=== PATIENT | male | born 1940 | race Caucasian/White ===

== ENCOUNTER 2018-03-20 14:13 | Inpatient (IN) | payer MEDICARE ==
[~2018-03-20] VITALS: Ht 182.9 cm; Wt 90.7 kg
[~2018-03-20 14:13] MED LIST: AMLODIPINE BESYL5 MG PO; BENICAR20 MG PO; HYDROCHLOROTHIA25 MG PO; NOVOLIN 70100 UNITS/ SQ
[2018-03-20] MEDS ORDERED: SODIUM CHLORIDE 0.9% 1000ML 1,000 ML IV STA (14:24)
[2018-03-20] MEDS ORDERED: ASPIRIN 81 MG CHEW TAB PO ONE (14:30)
[2018-03-20] MEDS ORDERED: NITROGLYCERIN 0.4 MG SUBL SL PRN (14:30)
[2018-03-20 16:06] LABS: BASOPHILS % 0.1 % (0.0-1.0); HEMATOCRIT 39.4 % (38.2-49.6); HEMOGLOBIN 13.8 g/dL (14.0-18.0); LYMPHOCYTES # (AUTO) 0.6 (1.0-3.2); MEAN CORPUSCULAR HEMOGLOBIN 33.4 pg (28-32); MEAN CORPUSCULAR VOLUME 95.4 fL (81-99); MONOCYTES # (AUTO) 0.9 (0.2-0.8); MONOCYTES % 7.2 % (4.4-11.3); NEUTROPHILS # (AUTO) 11.2 (2.1-6.9); NEUTROPHILS % 87.3 % (38.7-80.0); PLATELET COUNT 180 x10e3/uL (140-360); RED BLOOD COUNT 4.13 x10e6/uL (4.3-5.7); RED CELL DISTRIBUTION WIDTH 12.1 % (11.7-14.4)
[2018-03-20 16:20] LABS: INR 1.24; PROTHROMBIN TIME 14.7 seconds (11.9-14.5)
[2018-03-20 16:21] LABS: PARTIAL THROMBOPLASTIN TIME 34.9 seconds (23.8-35.5)
[2018-03-20 16:42] LABS: ALANINE AMINOTRANSFERASE 13 IU/L (0-55); ALBUMIN 3.9 g/dL (3.5-5.0); ALBUMIN/GLOBULIN RATIO 1.1 (0.8-2.0); ALKALINE PHOSPHATASE 70 IU/L (40-150); ANION GAP 16.9 mmol/L (8-16); BLOOD UREA NITROGEN 18 mg/dL (7-26); BUN/CREATININE RATIO 16 (6-25); CALCIUM 9.7 mg/dL (8.4-10.2); CARBON DIOXIDE 22 mmol/L (22-29); CHLORIDE 95 mmol/L (98-107); CREATINE KINASE 39 IU/L (30-200); CREATININE, SERUM 1.16 mg/dL (0.72-1.25); EST GLOMERULAR FILTRATION RATE > 60 ML/MIN (60-); GLUCOSE 264 mg/dL (74-118); POTASSIUM 3.9 mmol/L (3.5-5.1); SODIUM 130 mmol/L (136-145)
--- NOTE | 2018-03-20 16:52 | Diagnostic Imaging Report ---
EXAMINATION: CHEST SINGLE (NOT PORTABLE) 03/20/2018 2:24 PM COMPARISON: None INDICATION: Chest pain DISCUSSION: LINES: None. LUNGS: Dense left lower lobe and lingular opacity. Biapical pleural thickening. PLEURA: A small left pleural effusion may be present HEART AND MEDIASTINUM: The cardiomediastinal silhouette is unremarkable. BONES AND SOFT TISSUES: No acute osseous lesion. The soft tissues are normal. IMPRESSION: Dense left lower lobe and lingular opacity, suspicious for pneumonia. Recommend follow-up radiograph in 6-12 weeks to ensure resolution. Tip Mendoza MD Signed by: Dr. Tip Mendoza M.D. on 03/20/2018 4:49 PM
[2018-03-20] MEDS ORDERED: AZITHROMYCIN 500MG/NS 250 ML 250 ML IV STA (16:57)
[2018-03-20] MEDS ORDERED: CEFTRIAXONE SOD 1 GM VIAL IV ONE (17:00)
[2018-03-20] MEDS ORDERED: MORPHINE SULFATE 2 MG/ML SYR IV STA (17:36)
[2018-03-20] MEDS ORDERED: ONDANSETRON HCL INJ 2 MG/ML VIAL IV PRN (17:45)
[2018-03-20] MEDS ORDERED: DEXTROSE 50% SYRINGE 50 ML IV PRN (17:45)
[2018-03-20] MEDS: AZITHROMYCIN 500MG/SOD CHL 0.9% 250ML BAG IV SCH (17:55)
[2018-03-20] MEDS: CEFTRIAXONE SOD 1 GM VIAL IV SCH (17:55)
[2018-03-20] MEDS: IPRATROPIUM BROMIDE 0.02% 2.5 ML NEB NEB SCH ×3 (18:00→23:20)
[2018-03-20] MEDS ORDERED: MORPHINE SULFATE 2 MG/ML SYR IV PRN (18:15)
[2018-03-20] MEDS: SODIUM CHLORIDE 0.9% 1000ML 1,000 ML IV SCH (18:17)
[2018-03-20] MEDS: ALBUTEROL SULF 0.083% NEB SOLN 3 ML NEB NEB SCH ×2 (19:00→23:20)
[2018-03-20 19:42] VITALS: BP 155/74
[2018-03-20 19:43] VITALS: BP 155/74
[2018-03-20 19:46] VITALS: BP 155/74
[2018-03-20 20:00] VITALS: BP 155/74
[2018-03-20] MEDS: INSULIN REGULAR, HUMAN 100 UNIT/1 ML 3ML VIAL SQ SCH (20:30)
[2018-03-21] VITALS (7 sets, daily range): BP systolic 122–147; BP diastolic 64–72
[2018-03-21] MEDS ORDERED: ACETAMINOPHEN 325 MG TAB PO PRN (00:45)
[2018-03-21] MEDS: ALBUTEROL SULF 0.083% NEB SOLN 3 ML NEB NEB SCH ×5 (04:00→19:05)
[2018-03-21] MEDS: SODIUM CHLORIDE 0.9% 1000ML 1,000 ML IV SCH ×2 (05:12→15:20)
[2018-03-21 05:50] LABS: BASOPHILS % 0.2 % (0.0-1.0); HEMATOCRIT 33.9 % (38.2-49.6); HEMOGLOBIN 11.6 g/dL (14.0-18.0); MEAN CORPUSCULAR HEMOGLOBIN 33.3 pg (28-32); MEAN CORPUSCULAR HGB CONC 34.2 g/dL (31-35); MEAN CORPUSCULAR VOLUME 97.4 fL (81-99); MONOCYTES % 9.3 % (4.4-11.3); NEUTROPHILS # (AUTO) 8.3 (2.1-6.9); NEUTROPHILS % 80.1 % (38.7-80.0); PLATELET COUNT 133 x10e3/uL (140-360); RED BLOOD COUNT 3.48 x10e6/uL (4.3-5.7); RED CELL DISTRIBUTION WIDTH 12.2 % (11.7-14.4)
[2018-03-21 06:18] LABS: ANION GAP 12.6 mmol/L (8-16); BLOOD UREA NITROGEN 14 mg/dL (7-26); BUN/CREATININE RATIO 14 (6-25); CALCIUM 8.7 mg/dL (8.4-10.2); CARBON DIOXIDE 24 mmol/L (22-29); CHLORIDE 99 mmol/L (98-107); CREATININE, SERUM 0.97 mg/dL (0.72-1.25); EST GLOMERULAR FILTRATION RATE > 60 ML/MIN (60-); GLUCOSE 202 mg/dL (74-118); POTASSIUM 3.6 mmol/L (3.5-5.1); SODIUM 132 mmol/L (136-145)
[2018-03-21 06:37] LABS: CREATINE KINASE MB 0.2 ng/mL (0-5.0)
[2018-03-21] MEDS: IPRATROPIUM BROMIDE 0.02% 2.5 ML NEB NEB SCH ×3 (07:00→19:05)
[2018-03-21] MEDS: INSULIN REGULAR, HUMAN 100 UNIT/1 ML 3ML VIAL SQ SCH ×4 (07:30→21:40)
--- NOTE | 2018-03-21 07:46 | Diagnostic Imaging Report ---
CHEST SINGLE (PORTABLE), 03/21/2018 5:00 AM Technique: CHEST SINGLE (PORTABLE) Comparison: 03/20/2018 Clinical history: Pneumonia Findings: See Impression Impression: 1. Stable cardiomediastinal silhouette. 2. Increased left lower lobe consolidation in keeping with reported pneumonia. Probable underlying left pleural effusion. 3. Increased right basilar atelectasis or aspiration/pneumonia. Signed by: Dr Salma Tellez MD on 03/21/2018 6:36 AM
[2018-03-21 13:39] LABS: CHOL/HDL RATIO 2.4 (3.9-4.7)
[2018-03-21 14:02] LABS: CREATINE KINASE MB 0.3 ng/mL (0-5.0)
--- NOTE | 2018-03-21 16:18 | History and Physical ---
HISTORY OF PRESENT ILLNESS: He is a 78-year-old male with past medical history positive for hypertension, prostate surgery, history of diabetes mellitus type 2. He came here with left-sided chest pain with no radiation. He was found to have left lower lobe pneumonia and right lower lobe pneumonia. Cardiac enzymes x2 are completely negative right now. Findings are atypical. REVIEW OF SYSTEMS CARDIOVASCULAR: He had kind of an atypical chest pain on the left side where the location of the pneumonia is. No shortness of breath. RESPIRATORY: No shortness of breath. No cough. GASTROINTESTINAL: No nausea, no vomiting, no diarrhea. GENITOURINARY: No frequency, no dysuria. ALLERGIES: ALLERGIC TO SULFA DRUGS. PAST MEDICAL HISTORY: Hypertension, diabetes. SOCIAL HISTORY: He does not smoke. He does not drink. PHYSICAL EXAMINATION VITAL SIGNS: We have temperature 97.1, heart rate 66 per minute, respiratory rate 20 per minute, blood pressure 122/72, oxygen saturation 98%. HEART: Regular rhythm. Normal S1 and S2 sounds. LUNGS: Clear bilaterally. ABDOMEN: Soft. EXTREMITIES: No evidence of cyanosis, edema or trauma. IMAGING: Bilateral pneumonia. We have a chest x-ray which showed stable cardiomediastinal silhouette, increased left lower lobe consolidation in keeping with possible pneumonia. Left pleural effusion. Right basilar atelectasis or aspiration pneumonia. MICROBIOLOGY: Blood cultures are done, and report is pending. LABS: Troponin times 2 are completely normal. EKG: Sinus bradycardia with 1st-degree AV block, left atrial enlargement, otherwise no significant change on the EKG. No evidence of any ST-segment elevation or depression. FINAL IMPRESSION 1. Atypical chest pain. 2. Bilateral pneumonia. 3. Hypertension. 4. Uncontrolled diabetes mellitus, type 2. PLAN OF TREATMENT 1. Going to do a CT of the chest with PE protocol to rule out the possibility of pulmonary embolism since the symptoms of pneumonia are not very clear. 2. Continue IV fluids at 100 mL an hour. 3. Zithromax. 4. Rocephin. 5. Aspirin 81 mg daily. 6. Atrovent q.6 h. 7. Hydrochlorothiazide 25 mg daily. 8. Morphine 4 mg IV q.4 h. as needed for pain. 9. Nitroglycerin 0.4 mg q.5 minutes p.r.n. for chest pain. 10. Benicar 40 mg daily. 11. Monitor blood sugar a.c. and nightly. 12. Tylenol 350 mg q.4 h. as needed for pain or fever. 13. Albuterol q.4 h. 14. Amlodipine 5 mg twice a day. 15. I discussed the case with Dr. Gilbert, plywood patcher on the case. We are going to continue telemetry. We are going to continue monitoring the cardiac enzymes. 16. Diet is 1800 calorie, ADA diet. Job#: [id number]
--- NOTE | 2018-03-21 16:21 | Diagnostic Imaging Report ---
EXAM: CT Chest WITH contrast 03/21/2018 1:14 PM INDICATION: Chest pain. Pulmonary embolism. COMPARISON: None TECHNIQUE: Chest was scanned utilizing a multidetector helical scanner from the lung apex through the level of the adrenal glands without administration of IV contrast. Coronal and sagittal reformations were obtained. Pulmonary embolism protocol was performed. IV CONTRAST: 100 mL of Isovue-370. RADIATION DOSE: Total DLP: 547.33 mGy*cm Estimated effective dose: (DLP x 0.014 x size factor) mSv COMPLICATIONS: None FINDINGS: LINES/ TUBES: None. LUNGS AND AIRWAYS: Mild bilateral senescent fibrosis. Left lower lobe consolidation with air bronchograms. In addition, bilateral lower lobe atelectasis. PLEURA: Small left pleural effusion. Trace right pleural fluid. No pneumothorax. Biapical pleural-parenchymal scarring. HEART AND MEDIASTINUM: The thyroid gland is normal. Mildly prominent hilar lymph nodes bilaterally. No mediastinal or axillary lymphadenopathy.. The heart is normal in size.. There is no pericardial effusion. There are mild atherosclerotic calcifications in the aorta and coronary arteries. UPPER ABDOMEN: Limited non-contrast views of the upper abdomen show no abnormality within the visualized liver, spleen, pancreas, or kidneys. The adrenal glands are normal. BONES: Mid to lower thoracic spondylosis. SOFT TISSUES: Unremarkable. IMPRESSION: Left lower lobe pneumonia and small left parapneumonic pleural effusion. No pulmonary embolism as per clinical query. Signed by: Dr. Manuela Pulliam M.D. on 03/21/2018 4:18 PM
[2018-03-21] MEDS: AMLODIPINE BESYLATE 5 MG TAB PO SCH (17:11)
[2018-03-21] MEDS: AZITHROMYCIN 500MG/SOD CHL 0.9% 250ML BAG IV SCH (17:11)
[2018-03-21] MEDS: CEFTRIAXONE SOD 1 GM VIAL IV SCH (17:11)
[2018-03-21] MEDS ORDERED: IOPAMIDOL 370 MG/ML 200 ML INFUS..BTL INJ ONE (17:35)
[2018-03-21] MEDS ORDERED: SODIUM CHLORIDE 0.9% 50ML 50 ML ONE (17:35)
--- NOTE | 2018-03-21 22:12 | Consultation ---
DATE OF CONSULTATION: March 21, 2018 CARDIOLOGY CONSULTATION REQUESTING PHYSICIAN: Dr. Leblanc. REASON FOR CONSULTATION: Chest pain. HISTORY OF PRESENT ILLNESS: This is a 78-year-old man with history of diabetes mellitus and hypertension, who presents with complaints of chest pain. The patient states he was in his usual state of health until he developed left-sided chest pain yesterday morning. He described it as feeling like a pulled muscle. It progressively worsened such that he presented to the ER for further evaluation. The patient reports the pain was not associated with shortness of breath, nausea or diaphoresis and it was worse with change in position. He denies any edema, orthopnea, PND or lightheadedness. He denies any fever, chills or sick contacts and denies any recent travel. REVIEW OF SYSTEMS: Negative except as per HPI. PAST MEDICAL HISTORY 1. Diabetes mellitus. 2. Hypertension. 3. Prostate cancer, status post resection. PAST SURGICAL HISTORY: Prostate cancer surgery. ALLERGIES: PLEASE SEE EMR. MEDICATIONS: Please see medication list. SOCIAL HISTORY: Denies tobacco, alcohol or illicit drugs. FAMILY HISTORY: Denied. PHYSICAL EXAMINATION VITAL SIGNS: Temperature 97.1 degrees, pulse 56, respiratory rate 20, blood pressure 122/72, oxygen saturation 98% on room air. GENERAL: Elderly man, awake. Well-developed, well-nourished. No acute distress. Awake and alert. HEENT: Normocephalic, atraumatic. Pupils equal. No scleral icterus. NECK: Supple. No thyromegaly or cervical lymphadenopathy. No carotid bruits. LUNGS: Clear to auscultation bilaterally. No wheezes or crackles. CARDIOVASCULAR: Normal rate. Regular rhythm. No murmur. Normal S1, S2. ABDOMEN: Soft, nontender. EXTREMITIES: No edema. LABS: WBC 10.41, hemoglobin 11.6, hematocrit 33.9, platelets 133,000. Sodium 132, potassium 3.6, chloride 99, CO2 24, BUN 14, creatinine 0.97, troponin 0.011. Chest x-ray: Stable cardiomediastinal silhouette, increasing left lower lobe consolidation in keeping with probable pneumonia, probable underlying left pleural effusion, increased right basilar atelectasis or aspiration/pneumonia. EKG sinus tachycardia with 1st degree AV block, possible left atrial enlargement. IMPRESSION 1. Left lower lobe pneumonia. 2. Chest pain. 3. Diabetes mellitus. 4. Hypertension. 5. History of prostate cancer, status post resection and radiation. RECOMMENDATIONS: The patient has been ruled out for myocardial infarction with serial cardiac biomarkers. We will order echocardiogram. Antibiotics per primary service. Given the patient's risk factors, he does warrant ischemic evaluation once he has recovered from his recent illness. In the meantime, check lipid panel, start aspirin. Thank you for this consult. We will continue to follow. Job#: [id number] SHAWN
[2018-03-22] VITALS: BP 165/77
[2018-03-22] MEDS: ALBUTEROL SULF 0.083% NEB SOLN 3 ML NEB NEB SCH ×3 (03:55→07:00)
[2018-03-22 04:00] VITALS: BP 160/72
[2018-03-22 05:12] LABS: BASOPHILS % 0.2 % (0.0-1.0); EOSINOPHILS % 0.2 % (0.0-6.0); HEMATOCRIT 33.4 % (38.2-49.6); HEMOGLOBIN 11.6 g/dL (14.0-18.0); LYMPHOCYTES # (AUTO) 0.8 (1.0-3.2); LYMPHOCYTES % 14.6 % (18.0-39.1); MEAN CORPUSCULAR HEMOGLOBIN 33.9 pg (28-32); MEAN CORPUSCULAR HGB CONC 34.7 g/dL (31-35); MEAN CORPUSCULAR VOLUME 97.7 fL (81-99); MONOCYTES # (AUTO) 0.6 (0.2-0.8); MONOCYTES % 11.3 % (4.4-11.3); NEUTROPHILS % 73.3 % (38.7-80.0); PLATELET COUNT 142 x10e3/uL (140-360); RED BLOOD COUNT 3.42 x10e6/uL (4.3-5.7); RED CELL DISTRIBUTION WIDTH 12.4 % (11.7-14.4)
[2018-03-22 05:30] LABS: ANION GAP 13.4 mmol/L (8-16); BLOOD UREA NITROGEN 13 mg/dL (7-26); BUN/CREATININE RATIO 15 (6-25); CALCIUM 8.6 mg/dL (8.4-10.2); CARBON DIOXIDE 21 mmol/L (22-29); CHLORIDE 102 mmol/L (98-107); CREATININE, SERUM 0.85 mg/dL (0.72-1.25); EST GLOMERULAR FILTRATION RATE > 60 ML/MIN (60-); GLUCOSE 177 mg/dL (74-118); POTASSIUM 3.4 mmol/L (3.5-5.1); SODIUM 133 mmol/L (136-145)
[2018-03-22] MEDS ORDERED: SODIUM CHLORIDE 0.9% 1000ML 1,000 ML IV SCH (06:30)
[2018-03-22] MEDS ORDERED: SODIUM CHLORIDE 0.9% 1000ML 1,000 ML ONE (06:41)
[2018-03-22] MEDS: IPRATROPIUM BROMIDE 0.02% 2.5 ML NEB NEB SCH ×2 (07:00)
[2018-03-22 07:50] VITALS: BP 146/67
[2018-03-22] MEDS: AMLODIPINE BESYLATE 5 MG TAB PO SCH (08:14)
[2018-03-22] MEDS: INSULIN REGULAR, HUMAN 100 UNIT/1 ML 3ML VIAL SQ SCH (08:23)
[2018-03-22] MEDS ORDERED: POTASSIUM CHLORIDE 10 MEQ TABCR PO ONE (08:30)
[2018-03-22] MEDS ORDERED: HYDROCHLOROTHIAZIDE 25 MG TAB PO SCH (09:00)
[2018-03-22] MEDS ORDERED: OLMESARTAN 20 MG TAB PO SCH (09:00)
[2018-03-22] MEDS ORDERED: ASPIRIN 81 MG ENTERIC COATED PO SCH ×2 (09:00)
[2018-03-22] MEDS ORDERED: PNEUMOCOCCAL VACCINE POLYVALENT 23 MCG/0.5 ML VIAL IM ONE (09:15)
--- NOTE | 2018-03-22 10:03 | Discharge Summary ---
ADMIT DIAGNOSES: 1. Sepsis secondary to left lower lobe pneumonia. 2. Left lower lobe pneumonia. 3. Acute renal failure. 4. Hypertensive heart disease. 5. Type 2 diabetes mellitus. DISCHARGE DIAGNOSES: 1. Sepsis secondary to left lower lobe pneumonia, resolved. 2. Left lower lobe pneumonia, resolving. 3. Hypertensive heart disease. 4. Type 2 diabetes mellitus. 5. Acute renal failure, resolved. HOSPITAL COURSE: This is a 78-year-old white man who was initially admitted to [facility] with a diagnosis of sepsis secondary to left lower lobe pneumonia. On admission, patient had a chest x-ray performed that revealed a dense left lower lobe and lingular opacity suspicious for pneumonia. The patient underwent a CT of the chest with intravenous contrast that revealed left lower lobe pneumonia and small left parapneumonic pleural effusion. The patient improved clinically with intravenous antibiotics, namely ceftriaxone, azithromycin. On admission, patient's white blood cell count was 12,800 with 87% segmented neutrophils. On day of discharge, patient's white blood cell count was 5400 with 73% segmented neutrophils. On admission, patient's BUN and creatinine were 18 and 1.16 respectively. Patient did receive intravenous fluids during this hospitalization. On day of discharge, patient's BUN and creatinine were 13 and 0.5 respectively. Patient's renal function obviously improved with the intravenous fluids as shown by his improvement in renal function. During this hospitalization, patient was found to have a hemoglobin A1c of 8.4%. Patient's LDL cholesterol was 51 mg/dL. Patient's triglyceride level was 65 mg/dL. Patient underwent a 2D echocardiogram during this hospitalization which revealed left ventricular ejection fraction of 60% to 65%. The patient had blood cultures done during this hospitalization which did not reveal any bacterial growth. Patient's condition on discharge was stable. DISCHARGE MEDICATIONS: 1. Levofloxacin 750 mg daily for 7 days. 2. Amlodipine 5 mg b.i.d. 3. Hydrochlorothiazide 25 mg daily. 4. Novolin 70 per 30 insulin, 20 units subcutaneous twice a day. 5. Olmesartan 40 mg daily. FOLLOWUP INSTRUCTIONS: Patient is instructed to follow up with his primary care physician, namely myself, Dr. Sandeep Vargas within 1 week. Prior to discharge, patient was given a pneumococcal vaccination in the form of Prevnar 13. SANDEEP VARGAS MD Job#: [id number]
== END 2018-03-22 10:02 | disposition home or self-care (01) | DRG 871 ==
LOC: ER 14:13 → ERHOLD 17:51 → IMCU 18:44 → OBSVTOIN 03-21 09:35
PROVIDERS: ADMIT Internal Medicine; ATTEND Internal Medicine
DX: A41.9 Sepsis, unspecified organism (principal); J15.9 Unspecified bacterial pneumonia; N17.9 Acute kidney failure, unspecified; I11.0 Hypertensive heart disease with heart failure; I50.9 Heart failure, unspecified; R07.89 Other chest pain; E11.65 Type 2 diabetes mellitus with hyperglycemia; Z85.46 Personal history of malignant neoplasm of prostate
CPT/HCPCS: 36415; 71045; 71260; 80048; 80053; 80061; 82550; 82553; 82948; 83036; 83880; 84484; 85025; 85610; 85730; 87040; 90732; 93005; 93306; 94640; 99284; G0378; J0456; J0696; J2270; J7030; Q9967

== ENCOUNTER → 2018-05-31 | Outpatient (CLI) | payer MEDICARE ==
[~2018-05-31] MED LIST changes: +IOPAMIDOL 300MG/ML 100 ML INFUS..BTL IV ONE; +SODIUM CHLORIDE 0.9% 250ML 250 ML ONE
[2018-05-31 16:57] LABS: BLOOD UREA NITROGEN 16 mg/dL (7-26); BUN/CREATININE RATIO 16 (6-25); CREATININE, SERUM 1.01 mg/dL (0.72-1.25); EST GLOMERULAR FILTRATION RATE > 60 ML/MIN (60-)
--- NOTE | 2018-06-01 11:26 | Diagnostic Imaging Report ---
EXAM: CT Abdomen and Pelvis WITHOUT and WITH contrast INDICATION: Asymptomatic microscopic hematuria. Diabetes. Hypertension. History of prostate cancer. COMPARISON: CT scan 03/21/2018 TECHNIQUE: Abdomen and pelvis were scanned utilizing a multidetector helical scanner from the lung base to the pubic symphysis before and after administration of IV contrast. Coronal and sagittal reformations were obtained. Hematuria protocol was performed. 3-D reformatted images were obtained of the kidneys, ureters and urinary bladder IV CONTRAST: 150 mL of Isovue-370 ORAL CONTRAST: Water RADIATION DOSE: Total DLP: 1207.10 mGy*cm Estimated effective dose: (DLP x 0.015 x size factor) mSv COMPLICATIONS: None FINDINGS: LINES and TUBES: None. LOWER THORAX: Interval collapse of the visualized portion of the left upper lobe. Interval development of spiculated nodular densities in the right lower lobe with persistent consolidative pneumonia in the left lower lobe. A CT scan of the chest is recommended. HEPATOBILIARY: Too small to characterize hypodensity in the right lobe of the liver best seen on series 6 image 34. No biliary ductal dilation. GALLBLADDER: No radio-opaque stones or sludge. No wall thickening. SPLEEN: No splenomegaly. PANCREAS: No focal masses or ductal dilatation. ADRENALS: No adrenal nodules KIDNEYS/URETERS: Kidneys enhance symmetrically. No hydronephrosis. No cystic or solid mass lesions. No stones. Bilateral perinephric fat stranding could be due to chronic medical renal disease. GI TRACT: No abnormal distention, wall thickening, or evidence of bowel obstruction. PELVIC ORGANS/BLADDER: Questionable nodularity along the posterior left aspect of the urinary bladder best seen on series 6 image 160. Punctate calcification in the prostate gland. Scattered phleboliths in the pelvis. LYMPH NODES: No lymphadenopathy. VESSELS: Unremarkable. PERITONEUM / RETROPERITONEUM: No free air or fluid. BONES: Unremarkable. SOFT TISSUES: Unremarkable. IMPRESSION: Interval collapse of the visualized portion of the left upper lobe. Interval development of spiculated nodular densities in the right lower lobe with persistent consolidative pneumonia in the left lower lobe. A CT scan of the chest is recommended. Bilateral perinephric fat stranding could be due to chronic medical renal disease. No urinary tract calcifications. Questionable nodularity along the posterior left aspect of the urinary bladder. Direct visualization is recommended. Signed by: Dr. Elvis Mendoza M.D. on 06/01/2018 11:23 AM
== END ==
LOC: MRI 15:57
PROVIDERS: ATTEND Urology
DX: R31.21 Asymptomatic microscopic hematuria (principal)
CPT/HCPCS: 36415; 74178; 82565; 84520; J7050; Q9967

== ENCOUNTER → 2018-07-15 | Outpatient (CLI) | payer MEDICARE ==
[~2018-07-15] MED LIST changes: -IOPAMIDOL 300MG/ML 100 ML INFUS..BTL IV ONE; +IOPAMIDOL 370 MG/ML 200 ML INFUS..BTL INJ ONE; -SODIUM CHLORIDE 0.9% 250ML 250 ML ONE; +SODIUM CHLORIDE 0.9% 50ML 50 ML ONE
[2018-07-15 08:03] LABS: BLOOD UREA NITROGEN 22 mg/dL (7-26); BUN/CREATININE RATIO 21 (6-25); CREATININE, SERUM 1.05 mg/dL (0.72-1.25); EST GLOMERULAR FILTRATION RATE > 60 ML/MIN (60-)
--- NOTE | 2018-07-15 09:07 | Diagnostic Imaging Report ---
PROCEDURE: CT scan of the chest WITH intravenous contrast, using standard protocol. TECHNIQUE: The chest was scanned utilizing a multidetector helical scanner from the lung apex through the level of the adrenal glands after the IV administration of 100 cc of Isovue 370. Coronal and sagittal multiplanar reformations were obtained. COMPARISON: CT chest 03/21 2018. INDICATIONS: SHORTNES OF BREATH, NODULE FINDINGS: Lines/tubes: None. Lungs and Airways: Relative to 03/21/2018, interval progression of dense consolidations involving the left lower lobe and now the lingula, along with new consolidations and ground glass opacities involving the right lower lobe. Along the superior margin of the consolidation in the lingula and left lower lobe, there are diffuse groundglass opacities with interlobular septal thickening. Right upper lobe groundglass nodules measure 9 and 11 mm seen on series 3 image 48 and 1 cm seen on series 3 image 75. Right lower lobe groundglass nodule along the major fissure measures 1 cm as seen on series 3 image 75. Right lower lobe juxtapleural groundglass nodule measures 1.3 cm seen on series 3 image 79. Peribronchial vascular consolidations in the lingula are also noted. Left apical groundglass nodule measures 5 mm seen on series 3 image 40. Pleura: The pleural spaces are clear. Heart and mediastinum: The visualized portions of the thyroid gland are normal. Atherosclerotic calcification of the thoracic aorta, viejas coronary arteries, and great vessel origins. Borderline ectasia of the descending thoracic aorta (4 cm). No axillary, hilar, or mediastinal lymphadenopathy. No pericardial effusion. Soft tissues: Normal. Abdomen: Visualized portions of the liver are notable for a subcentimeter hypoattenuating lesion in segment 7, too small to further characterize but likely represent small cysts. Visualized portions of the gallbladder, spleen, pancreas, adrenals, and upper poles of the kidneys are unremarkable. Bones: No osseous destructive lesions. Degenerative disc changes of the lower cervical spine, partially visualized, as well as the thoracic spine. IMPRESSION: Significant interval progression of multifocal consolidations predominantly involving the lingula and bilateral lower lobes, with multiple new perivascular groundglass nodules as detailed above. Differential diagnosis of above findings includes atypical multifocal pneumonia, specifically fungal etiologies, vasculitis, as well as pulmonary alveolar proteinosis. An occult malignancy should also be considered given the lack of radiographic resolution of findings over the past several months. Pulmonary referral for potential bronchoscopy is recommended. Scattered groundglass pulmonary nodules may be assessed for stability by CT scan of the chest in 3 months. Mild ectasia of the descending thoracic aorta (4 cm) Dictated by: José Manuel Bishop M.D. on 07/15/2018 at 9:18 Electronically approved by: José Manuel Bishop M.D. on 07/15/2018 at 9:18
== END ==
LOC: CT 07:19
PROVIDERS: ATTEND Internal Medicine
DX: R91.1 Solitary pulmonary nodule (principal)
CPT/HCPCS: 36415; 71260; 82565; 84520; Q9967